=== PATIENT | male | born 1965 | race Caucasian/White ===

== ENCOUNTER 2025-04-06 17:22 | Inpatient (IN) | payer MEDICAID ==
[~2025-04-06] VITALS: Ht 190.5 cm; Wt 133.4 kg
[2025-04-06 17:22] VITALS: BP 113/61; PULSE 58; RESP 19; TEMP 36.8; O2SAT 99
[~2025-04-06 17:22] MED LIST: ATOR-2 MT; BRIM5DRO EACHEYE; DORZ10DR9 EACHEYE; EMPA25TA MT; HYDR12.54 MT; LATA2.5D14 EACHEYE; LISI40TA13 PO; NPH,100V SQ; RIVA20TA PO
[2025-04-06 18:00] VITALS: BP 113/61; PULSE 58; RESP 19; TEMP 36.8; O2SAT 99
[2025-04-06] MEDS ORDERED: ACETAMINOPHEN 325MG TABLET PO PRN (18:30)
[2025-04-06] MEDS ORDERED: METOCLOPRAMIDE HCL 10MG/2ML VIAL IV PRN (18:30)
[2025-04-06 20:00] VITALS: BP 122/64; PULSE 70; RESP 18; TEMP 36.6; O2SAT 99
[2025-04-06 21:00] VITALS: BP 122/64; PULSE 70; RESP 18; TEMP 36.6
[2025-04-06] MEDS: QUETIAPINE FUMARATE 50MG TABLET PO SCH (21:12)
[2025-04-06] MEDS: APIXABAN 5 MG TABLET PO SCH (21:12)
[2025-04-06] MEDS: PANTOPRAZOLE SODIUM 40 MG/VIAL IV SCH (21:12)
[2025-04-06] MEDS: AMIODARONE 200MG TABLET PO SCH (21:13)
[2025-04-06] MEDS: BLOOD SUGAR DIAGNOSTIC STRIP TEST SCH (21:13)
[2025-04-06] MEDS: METOPROLOL TARTRATE 50MG TABLET PO SCH (21:13)
[2025-04-06] MEDS: DEXT 5%/0.45% NACL 1000ML 1,000 ML IV SCH (21:21)
[2025-04-06] MEDS: INSULIN LISPRO 100 UNITS/ML SUBCUT SCH (21:43)
[2025-04-06] MEDS: INSULIN GLARGINE 100 UNITS/ML SUBCUT SCH (21:43)
[2025-04-06] MEDS: ONDANSETRON HCL 4MG/2ML INJ IV PRN (22:30)
[2025-04-06 22:31] VITALS: PULSE 66; RESP 18; O2SAT 99
[2025-04-06] MEDS: IPRATROPIUM/ALBUTEROL 0.5-3(2.5)MG/3ML NEB HHN SCH (22:31)
[2025-04-07] VITALS (7 sets, daily range): BP systolic 108–121; BP diastolic 54–71; PULSE 59–95; RESP 18–20; TEMP 36.5–36.7; O2SAT 94–100
[2025-04-07] MEDS: METOCLOPRAMIDE HCL 10MG/2ML VIAL IV PRN (01:41)
[2025-04-07] MEDS: INSULIN LISPRO 100 UNITS/ML SUBCUT SCH (07:09)
[2025-04-07 07:32] LABS: BASOPHILS % 0.5 % (0.0-2.0); EOSINOPHILS % 1.3 % (0.0-5.0); HEMATOCRIT. 37.5 % (42.0-52.0); HEMOGLOBIN. 12.8 g/dL (14.0-18.0); LYMPHOCYTES % 28.4 % (20.0-50.0); MEAN CORPUSCULAR HEMOGLOBIN 32.5 pg (28.0-32.0); MEAN CORPUSCULAR HGB CONC 34.2 g/dL (31.0-37.0); MEAN PLATELET VOLUME 8.2 fl (7.4-10.4); NEUTROPHILS % 60.8 % (40.0-76.0); PLATELET 309 x1000/uL (130-400); RED BLOOD CELL COUNT 3.95 mill/uL (4.7-6.1); RED CELL DISTRIBUTION WIDTH 13.7 % (11.6-14.6); WHITE BLOOD COUNT 7.6 x1000/uL (4.5-11.0)
[2025-04-07 07:42] LABS: CHLORIDE 105 mEq/L (98-107); POTASSIUM 4.2 mEq/L (3.5-5.1); SODIUM 140 mEq/L (136-145)
[2025-04-07 07:43] LABS: CALCIUM 9.3 mg/dL (8.7-10.4); CARBON DIOXIDE 26 mEq/L (21-32)
[2025-04-07 07:48] LABS: CREATININE 0.9 mg/dL (0.6-1.3); GLUCOSE 206 mg/dL (70-105)
[2025-04-07 07:49] LABS: UREA NITROGEN BLOOD 6 mg/dL (9-23)
[2025-04-07 07:50] LABS: ALANINE AMINOTRANSFERASE 14 IU/L (10-49); ASPARTATE AMINOTRANSFERASE 25 IU/L (<34)
[2025-04-07 07:51] LABS: BILIRUBIN TOTAL 0.4 mg/dL (0.1-1.0); PREALBUMIN 7.2 mg/dl (10.0-40.0); PROTEIN TOTAL 5.8 g/dL (6.0-8.3)
[2025-04-07] MEDS: AMLODIPINE 5MG TABLET PO SCH (09:00)
[2025-04-07] MEDS: SERTRALINE HCL 25MG TABLET PO SCH (09:00)
[2025-04-07] MEDS: ASPIRIN 81MG TABLET PO SCH (09:00)
[2025-04-07] MEDS: CEFTRIAXONE 2GM/50ML 50 ML IV SCH (14:32)
[2025-04-07] MEDS: THIAMINE HCL 100MG TABLET PO SCH (14:33)
[2025-04-07] MEDS: FOLIC ACID 1MG TABLET PO SCH (14:33)
[2025-04-07] MEDS: HALOPERIDOL LACTATE 5MG/ML VIAL IM PRN (19:37)
[2025-04-08 08:24] VITALS: BP 136/83; PULSE 98; RESP 20; TEMP 36.7; O2SAT 100
[2025-04-08 08:36] VITALS: PULSE 93; RESP 16
[2025-04-08] MEDS: LACTULOSE 20G/30ML UDC PO SCH ×2 (11:15→18:31)
[2025-04-08] MEDS: NA PHOS,M-B/NA PHOS,DI-BA ENEMA 118ML PR NR (11:16)
[2025-04-08] MEDS ORDERED: BISACODYL 10MG SUPP PR SCH (12:30)
[2025-04-08] MEDS ORDERED: LACTULOSE 20G/30ML UDC PO SCH (12:30)
[2025-04-08 17:51] VITALS: PULSE 88; RESP 16
[2025-04-08] MEDS: DEXTROSE 50% WATER 50ML SYRINGE IV PRN (18:11)
[2025-04-08 20:00] VITALS: BP 116/63; PULSE 81; RESP 19; TEMP 36.7; O2SAT 99
[2025-04-08 20:03] VITALS: PULSE 79; RESP 18; O2SAT 98
[2025-04-08] MEDS: POLYETHYLENE GLYCOL 3350 (17GM) 1 DOSE PACK PO SCH (21:26)
[2025-04-09 02:06] VITALS: PULSE 80; RESP 18
[2025-04-09 08:00] VITALS: BP 141/84; PULSE 79; RESP 20; TEMP 36.7; O2SAT 97
[2025-04-09] MEDS: CEFTRIAXONE 2GM/50ML 50 ML IV SCH (13:42)
[2025-04-09 20:00] VITALS: BP 153/89; PULSE 80; RESP 18; TEMP 36.4; O2SAT 99
[2025-04-09] MEDS: SENNOSIDES 8.6MG TABLET PO SCH (21:47)
[2025-04-09] MEDS: DOCUSATE SODIUM 100MG CAPSULE PO SCH (21:52)
[2025-04-10 00:08] VITALS: PULSE 73; RESP 18; O2SAT 96
[2025-04-10] MEDS: IPRATROPIUM/ALBUTEROL 0.5-3(2.5)MG/3ML NEB HHN PRN (00:08)
[2025-04-10 08:00] VITALS: BP 136/88; PULSE 74; RESP 20; TEMP 36.1; O2SAT 99
[2025-04-10 20:00] VITALS: BP 145/84; PULSE 66; RESP 20; TEMP 36.4; O2SAT 94
[2025-04-11 08:00] VITALS: BP 121/78; PULSE 64; RESP 20; TEMP 36.3; O2SAT 99
[2025-04-11] MEDS: GUAIFENESIN 200MG/10ML SUGAR FREE UDC PO PRN (08:44)
[2025-04-11 20:00] VITALS: BP 142/63; PULSE 64; RESP 17; TEMP 36.5; O2SAT 98
[2025-04-12 08:00] VITALS: BP 118/74; PULSE 69; RESP 19; TEMP 36.5; O2SAT 97
[2025-04-12] MEDS: SERTRALINE HCL 50MG TABLET PO SCH (08:35)
[2025-04-12 20:00] VITALS: BP 126/73; PULSE 60; RESP 19; TEMP 36.3; O2SAT 100
[2025-04-12 22:36] VITALS: PULSE 67; RESP 18; O2SAT 97
[2025-04-13 08:00] VITALS: BP 115/60; PULSE 78; RESP 19; TEMP 36.8; O2SAT 98
[2025-04-13 08:00] LABS: BASOPHILS % 0.9 % (0.0-2.0); EOSINOPHILS % 2.2 % (0.0-5.0); HEMATOCRIT. 37.7 % (42.0-52.0); HEMOGLOBIN. 12.6 g/dL (14.0-18.0); LYMPHOCYTES % 20.6 % (20.0-50.0); MEAN CORPUSCULAR HEMOGLOBIN 31.9 pg (28.0-32.0); MEAN CORPUSCULAR HGB CONC 33.4 g/dL (31.0-37.0); MEAN CORPUSCULAR VOLUME 95.6 fL (80.0-94.0); MEAN PLATELET VOLUME 8.6 fl (7.4-10.4); MONOCYTES % 8.4 % (2.0-8.0); NEUTROPHILS % 67.9 % (40.0-76.0); PLATELET 234 x1000/uL (130-400); RED BLOOD CELL COUNT 3.94 mill/uL (4.7-6.1); RED CELL DISTRIBUTION WIDTH 14.8 % (11.6-14.6); WHITE BLOOD COUNT 8.7 x1000/uL (4.5-11.0)
[2025-04-13 08:13] LABS: CHLORIDE 102 mEq/L (98-107); POTASSIUM 3.9 mEq/L (3.5-5.1); SODIUM 136 mEq/L (136-145)
[2025-04-13 08:14] LABS: CALCIUM 9.6 mg/dL (8.7-10.4); CARBON DIOXIDE 25 mEq/L (21-32)
[2025-04-13 08:19] LABS: GLUCOSE 216 mg/dL (70-105); UREA NITROGEN BLOOD 6 mg/dL (9-23)
[2025-04-13 20:00] VITALS: BP 115/69; PULSE 100; RESP 18; TEMP 36.6; O2SAT 99
[2025-04-14] MEDS: MAGNESIUM/ALUMINUM HYDROXIDE/SIMETHICONE 30ML UDC PO PRN (05:57)
[2025-04-14 08:00] VITALS: BP 118/67; PULSE 99; RESP 18; TEMP 36.7; O2SAT 99
[2025-04-14] MEDS: MULTIVITAMINS,THER W-MINERALS TABLET PO SCH (08:24)
[2025-04-14] MEDS: ASCORBIC ACID 500 MG TABLET PO SCH (08:25)
[2025-04-14 20:00] VITALS: BP 139/71; PULSE 68; RESP 18; TEMP 36.5; O2SAT 99
[2025-04-14 20:09] LABS: ALANINE AMINOTRANSFERASE 18 IU/L (10-49); AMYLASE 23 IU/L (30-118); ASPARTATE AMINOTRANSFERASE 25 IU/L (<34)
[2025-04-14 20:10] LABS: ALBUMIN 2.9 g/dL (3.2-4.8); BILIRUBIN DIRECT 0.2 mg/dL (<=3.0); BILIRUBIN TOTAL 0.5 mg/dL (0.1-1.0); PROTEIN TOTAL 5.4 g/dL (6.0-8.3)
[2025-04-15 08:00] VITALS: BP 133/67; PULSE 85; RESP 20; TEMP 36.1; O2SAT 99
[2025-04-15 20:00] VITALS: BP 149/94; PULSE 121; RESP 18; TEMP 36.6; O2SAT 99
[2025-04-16 08:00] VITALS: BP 123/70; PULSE 71; RESP 18; TEMP 36.6; O2SAT 96
[2025-04-16 20:00] VITALS: BP 109/73; PULSE 75; RESP 18; TEMP 36.8; O2SAT 99
[2025-04-17 08:00] VITALS: BP 126/69; PULSE 74; RESP 20; TEMP 36.2; O2SAT 97
[2025-04-17 20:00] VITALS: BP 126/75; PULSE 65; RESP 18; TEMP 36.6; O2SAT 99
[2025-04-17] MEDS: PANTOPRAZOLE SODIUM 40 MG/VIAL IV SCH (21:47)
[2025-04-18 08:00] VITALS: BP 134/76; PULSE 65; RESP 20; TEMP 36.2; O2SAT 98
[2025-04-18 20:00] VITALS: BP 113/72; PULSE 62; RESP 18; TEMP 36.6; O2SAT 97
[2025-04-19 08:00] VITALS: BP 116/72; PULSE 62; RESP 20; TEMP 36.6; O2SAT 98
[2025-04-19 20:00] VITALS: BP 121/72; PULSE 64; RESP 16; TEMP 37.1; O2SAT 97
[2025-04-19] MEDS: APIXABAN 5 MG TABLET PO SCH (21:32)
[2025-04-20 08:00] VITALS: BP 130/72; PULSE 67; RESP 19; TEMP 36.4; O2SAT 99
[2025-04-20] MEDS ORDERED: AMI2 PO (08:28)
[2025-04-20] MEDS ORDERED: THIA100T72 PO (08:28)
[2025-04-20] MEDS ORDERED: FOLI-43 PO (08:28)
[2025-04-20] MEDS ORDERED: AMLO5TAB88 PO (08:28)
[2025-04-20] MEDS ORDERED: METO-539 PO (08:28)
[2025-04-20] MEDS ORDERED: SERT50TA PO (08:28)
[2025-04-20] MEDS ORDERED: ASCO500T20 PO (08:28)
[2025-04-20] MEDS ORDERED: ASPI-1160 PO (08:28)
[2025-04-20] MEDS ORDERED: QUET50TA PO (08:28)
[2025-04-20] MEDS ORDERED: NPH,100V SQ ×2 (08:30)
[2025-04-20 09:18] VITALS: BP 130/72; PULSE 67; TEMP 97.6; O2SAT 99
== END 2025-04-20 11:05 | disposition home health service (06) | DRG 58 ==
PROVIDERS: ADMIT Physical Medicine & Rehabilitation Spinal Cord Injury Medicine; ATTEND Hospitalist
PROC: GZ56ZZZ Individual Psychotherapy, Supportive (ICD-10-PCS; principal; 2025-04-10)
DX: G72.81 Critical illness myopathy (principal); N17.0 Acute kidney failure with tubular necrosis; J96.01 Acute respiratory failure with hypoxia; A41.1 Sepsis due to other specified staphylococcus; E10.10 Type 1 diabetes mellitus with ketoacidosis without coma; G92.8 Other toxic encephalopathy; K81.0 Acute cholecystitis; K85.80 Other acute pancreatitis without necrosis or infection; J15.9 Unspecified bacterial pneumonia; J68.0 Bronchitis and pneumonitis due to chemicals, gases, fumes and vapors; I95.1 Orthostatic hypotension; E10.42 Type 1 diabetes mellitus with diabetic polyneuropathy; I48.92 Unspecified atrial flutter; E66.01 Morbid (severe) obesity due to excess calories; I48.91 Unspecified atrial fibrillation; I21.A1 Myocardial infarction type 2; I10 Essential (primary) hypertension; U09.9 Post COVID-19 condition, unspecified; Z68.41 Body mass index [BMI] 40.0-44.9, adult; D63.8 Anemia in other chronic diseases classified elsewhere; E66.812 Obesity, class 2; F32.A Depression, unspecified; E78.1 Pure hyperglyceridemia; K57.30 Diverticulosis of large intestine without perforation or abscess without bleeding; K59.00 Constipation, unspecified; N13.9 Obstructive and reflux uropathy, unspecified; R13.12 Dysphagia, oropharyngeal phase; R47.02 Dysphasia; R26.9 Unspecified abnormalities of gait and mobility; R79.89 Other specified abnormal findings of blood chemistry; E87.0 Hyperosmolality and hypernatremia; K76.9 Liver disease, unspecified; R53.1 Weakness; M62.82 Rhabdomyolysis; L97.508 Non-pressure chronic ulcer of other part of unspecified foot with other specified severity; E10.621 Type 1 diabetes mellitus with foot ulcer; R05.3 Chronic cough; Z89.411 Acquired absence of right great toe; Z79.4 Long term (current) use of insulin; I25.2 Old myocardial infarction; Z83.3 Family history of diabetes mellitus; Z88.5 Allergy status to narcotic agent; Z91.81 History of falling; Z79.899 Other long term (current) drug therapy; Z68.36 Body mass index [BMI] 36.0-36.9, adult
CPT/HCPCS: 36415; 71045; 74018; 74230; 80048; 80053; 80076; 82150; 82306; 82962; 84134; 85025; 92523; 92610; 92611; 94070; 94640; 94664; 97110; 97116; 97162; 97166; 97530; 97535; 98960; A4606; J0696; J1630; J1815; J2405; J2470; J2765